=== PATIENT | female | born 1975 | race Caucasian/White ===

== ENCOUNTER 2019-08-18 15:06 | Outpatient (CLI) | payer BC ==
--- NOTE | 2019-08-18 16:46 | MRI ---
EXAM: Left knee MRI without contrast: HISTORY: Effusion left knee joint, medial and posterior pain COMPARISON: None FINDINGS: Multiplanar, multisequence MRI examination of the knees performed. No evidence for significant joint effusion. No evidence for significant articular cartilage loss Medial meniscus: Somewhat complex tear including a prominent longitudinal component extending from th e posterior horn into the body with associated para meniscal cysts up to 1.1 cm in size at the level of the body. There also appears to be a small flap component at the anterior body Lateral meniscus: Evidence for flap tear involving the posterior horn extending into the body with a small displaced meniscal flap at the level of the anterior horn. Anterior cruciate ligament:Intact. Posterior cruciate ligament: Intact. Medial collateral ligament complex: Intact. Lateral collateral ligament complex: Intact. Quadriceps and patellar tendons: Intact. Extensor mechanism: Unremarkable. No evidence for acute osteochondral defect or abnormal marrow signal. IMPRESSION: Somewhat complex medial and lateral meniscal tears with associated para meniscal cysts medially. Othe r findings as above.
== END 2019-08-18 15:07 | disposition home or self-care (01) ==
LOC: BICMRI 15:06
PROVIDERS: ATTEND Pediatrics Sports Medicine
DX: M25.462 Effusion, left knee (principal); M25.562 Pain in left knee; S83.272A Complex tear of lateral meniscus, current injury, left knee, initial encounter; S83.232A Complex tear of medial meniscus, current injury, left knee, initial encounter